=== PATIENT | male | born 1965 | race Asian ===

== ENCOUNTER 2019-05-27 07:22 | Outpatient (CLI) | payer OTHER ==
[~2019-05-27 07:22] MED LIST: AMLO10TA PO
[2019-05-27 10:10] LABS: APPEARANCE,URINE CLEAR (CLEAR); BILIRUBIN,URINE NEGATIVE (NEGATIVE); BLOOD, URINE NEGATIVE (NEGATIVE); COLOR,URINE YELLOW (YELLOW); LEUKOCYTE ESTERASE ,URINE NEGATIVE (NEGATIVE); NITRITE, URINE NEGATIVE (NEGATIVE); PH,URINE 5.5 (5.0-9.0); UGLUCOSE NEGATIVE (NEGATIVE)
[2019-05-27 11:18] LABS: ALBUMIN 4.5 g/dL (3.4-5.0)
[2019-05-27 13:07] LABS: ANION GAP 14.7 (8-16); CARBON DIOXIDE 27.7 mmol/L (21-32); CREATININE 1.7 mg/dL (0.7-1.3); PHOSPHORUS 3.4 mg/dL (2.5-4.9); POTASSIUM 4.4 mmol/L (3.5-5.1)
== END 2019-05-27 20:57 | disposition home or self-care (01) ==
LOC: MLB 07:22
PROVIDERS: ATTEND Family Medicine
DX: N18.3 Chronic kidney disease, stage 3 (moderate) (principal)
CPT/HCPCS: 36415; 76770; 81003; 82040; 82435; 82565; 82947; 84100; 84132; 84295; 84520

== ENCOUNTER 2020-06-25 09:22 | Outpatient (CLI) | payer OTHER ==
[2020-06-25 10:02] LABS: BASOPHILS # (AUTO) 0.1 K/uL (0.00-0.22); BASOPHILS % (AUTO) 1.3 % (0.0-2.0); EOSINOPHILS # (AUTO) 0.2 K/uL (0-0.4); EOSINOPHILS % (AUTO) 4.1 % (0.0-4.0); HEMOGLOBIN 14.1 g/dL (12.0-18.0); LYMPHOCYTES # (AUTO) 1.5 K/uL (2.0-11.5); LYMPHOCYTES % (AUTO) 33.7 % (20.5-51.1); MEAN CORPUSCULAR HEMOGLOBIN 28 pg (27-31); MEAN CORPUSCULAR HGB CONC 33 g/dL (33-37); MEAN CORPUSCULAR VOLUME 85.7 fL (80-94); MONOCYTES # (AUTO) 0.2 K/uL (0.8-1.0); MONOCYTES % (AUTO) 5.4 % (1.7-9.3); NEUTROPHILS # (AUTO) 2.5 K/uL (1.8-7.7); NEUTROPHILS % (AUTO) 55.5 % (42.2-75.2); PLATELET COUNT (AUTO) 283 K/uL (140-450); RED BLOOD CELL COUNT(AUTO) 5.02 MIL/uL (4.20-6.10); RED CELL DISTRIBUTION WIDTH 13.1 % (11.6-13.7); WHITE BLOOD COUNT (AUTO) 4.5 K/uL (4.8-10.8)
[2020-06-25 10:23] LABS: ALBUMIN 4.2 g/dL (3.4-5.0); ANION GAP 11.7 (8-16); CARBON DIOXIDE 29.7 mmol/L (21-32); CHOL/HDL RATIO 4.4 (1-4.5); CREATININE 1.6 mg/dL (0.6-1.3); POTASSIUM 4.4 mmol/L (3.5-5.1); THYROID STIMULATING HORMONE 0.91 uIU/mL (0.34-3.74); TOTAL BILIRUBIN 0.5 mg/dL (0.0-1.0)
== END 2020-06-25 20:24 | disposition home or self-care (01) ==
LOC: MLB 09:22
PROVIDERS: ATTEND Internal Medicine Geriatric Medicine
DX: I10 Essential (primary) hypertension (principal); Z00.00 Encounter for general adult medical examination without abnormal findings
CPT/HCPCS: 36415; 80053; 82272; 84443; 85025

== ENCOUNTER 2020-09-27 09:45 | Outpatient (CLI) | payer OTHER ==
[2020-09-27 10:23] LABS: BASOPHILS % (AUTO) 1.2 % (0.0-2.0); EOSINOPHILS # (AUTO) 0.2 K/uL (0-0.4); HEMATOCRIT 40.7 % (36-52); HEMOGLOBIN 13.3 g/dL (12.0-18.0); LYMPHOCYTES # (AUTO) 1.6 K/uL (2.0-11.5); LYMPHOCYTES % (AUTO) 43.2 % (20.5-51.1); MEAN CORPUSCULAR HEMOGLOBIN 28 pg (27-31); MEAN CORPUSCULAR HGB CONC 33 g/dL (33-37); MEAN CORPUSCULAR VOLUME 84.2 fL (80-94); MONOCYTES # (AUTO) 0.4 K/uL (0.8-1.0); NEUTROPHILS # (AUTO) 1.5 K/uL (1.8-7.7); NEUTROPHILS % (AUTO) 40.6 % (42.2-75.2); PLATELET COUNT (AUTO) 505 K/uL (140-450); RED BLOOD CELL COUNT(AUTO) 4.83 MIL/uL (4.20-6.10); RED CELL DISTRIBUTION WIDTH 13.3 % (11.6-13.7); WHITE BLOOD COUNT (AUTO) 3.8 K/uL (4.8-10.8)
[2020-09-27 13:30] LABS: ALBUMIN 3.9 g/dL (3.4-5.0); CARBON DIOXIDE 28.4 mmol/L (21-32); CREATININE 1.6 mg/dL (0.6-1.3); POTASSIUM 4.4 mmol/L (3.5-5.1); TOTAL BILIRUBIN 0.5 mg/dL (0.0-1.0)
== END 2020-09-27 20:29 | disposition home or self-care (01) ==
LOC: MLB 09:45
PROVIDERS: ATTEND Internal Medicine Geriatric Medicine
DX: I10 Essential (primary) hypertension (principal); D72.819 Decreased white blood cell count, unspecified
CPT/HCPCS: 36415; 80053; 82306; 85025

== ENCOUNTER 2021-01-06 10:22 | Outpatient (CLI) | payer OTHER ==
[2021-01-06 11:59] LABS: BASOPHILS # (AUTO) 0.1 K/uL (0.00-0.22); BASOPHILS % (AUTO) 1.3 % (0.0-2.0); EOSINOPHILS # (AUTO) 0.2 K/uL (0-0.4); EOSINOPHILS % (AUTO) 3.7 % (0.0-4.0); HEMATOCRIT 44.5 % (36-52); HEMOGLOBIN 14.8 g/dL (12.0-18.0); LYMPHOCYTES # (AUTO) 1.8 K/uL (2.0-11.5); LYMPHOCYTES % (AUTO) 34.4 % (20.5-51.1); MEAN CORPUSCULAR HEMOGLOBIN 28 pg (27-31); MEAN CORPUSCULAR HGB CONC 33 g/dL (33-37); MONOCYTES # (AUTO) 0.3 K/uL (0.8-1.0); MONOCYTES % (AUTO) 6.6 % (1.7-9.3); NEUTROPHILS # (AUTO) 2.8 K/uL (1.8-7.7); PLATELET COUNT (AUTO) 320 K/uL (140-450); RED BLOOD CELL COUNT(AUTO) 5.24 MIL/uL (4.20-6.10); RED CELL DISTRIBUTION WIDTH 13.4 % (11.6-13.7); WHITE BLOOD COUNT (AUTO) 5.1 K/uL (4.8-10.8)
[2021-01-06 12:18] LABS: ALBUMIN 4.2 g/dL (3.4-5.0); ANION GAP 11.8 (8-16); CARBON DIOXIDE 29.3 mmol/L (21-32); CREATININE 1.7 mg/dL (0.6-1.3); POTASSIUM 4.1 mmol/L (3.5-5.1); TOTAL BILIRUBIN 0.5 mg/dL (0.0-1.0)
== END 2021-01-06 21:33 | disposition home or self-care (01) ==
LOC: MLB 10:22
PROVIDERS: ATTEND Internal Medicine Geriatric Medicine
DX: I10 Essential (primary) hypertension (principal)
CPT/HCPCS: 36415; 80053; 85025

== ENCOUNTER 2021-03-10 14:38 | Outpatient (CLI) | payer OTHER ==
[2021-03-10 15:06] LABS: BASOPHILS % (AUTO) 0.5 % (0.0-2.0); EOSINOPHILS # (AUTO) 0.1 K/uL (0-0.4); EOSINOPHILS % (AUTO) 1.5 % (0.0-4.0); HEMATOCRIT 44.3 % (36-52); HEMOGLOBIN 14.5 g/dL (12.0-18.0); LYMPHOCYTES # (AUTO) 2.4 K/uL (2.0-11.5); LYMPHOCYTES % (AUTO) 33.7 % (20.5-51.1); MEAN CORPUSCULAR HEMOGLOBIN 28 pg (27-31); MEAN CORPUSCULAR HGB CONC 33 g/dL (33-37); MEAN CORPUSCULAR VOLUME 85.4 fL (80-94); MONOCYTES # (AUTO) 0.4 K/uL (0.8-1.0); MONOCYTES % (AUTO) 5.7 % (1.7-9.3); NEUTROPHILS # (AUTO) 4.2 K/uL (1.8-7.7); NEUTROPHILS % (AUTO) 58.6 % (42.2-75.2); PLATELET COUNT (AUTO) 307 K/uL (140-450); RED BLOOD CELL COUNT(AUTO) 5.19 MIL/uL (4.20-6.10); RED CELL DISTRIBUTION WIDTH 13.3 % (11.6-13.7); WHITE BLOOD COUNT (AUTO) 7.1 K/uL (4.8-10.8)
[2021-03-10 15:34] LABS: ALBUMIN 4.4 g/dL (3.4-5.0); ANION GAP 12.9 (8-16); CHOL/HDL RATIO 4.8 (1-4.5); CREATININE 1.6 mg/dL (0.6-1.3); POTASSIUM 3.9 mmol/L (3.5-5.1); TOTAL BILIRUBIN 0.6 mg/dL (0.0-1.0)
== END 2021-03-10 20:37 | disposition home or self-care (01) ==
LOC: MLB 14:38
PROVIDERS: ATTEND Internal Medicine Geriatric Medicine
DX: I10 Essential (primary) hypertension (principal)
CPT/HCPCS: 36415; 80053; 82272; 85025

== ENCOUNTER 2021-04-23 13:53 | Outpatient (CLI) | payer OTHER | END 2021-04-23 21:32 | disposition home or self-care (01) | LOC: MRD 13:53 | PROVIDERS: ATTEND Internal Medicine Geriatric Medicine | DX: M76.61 Achilles tendinitis, right leg (principal) | CPT/HCPCS: 73610; 73630 ==

== ENCOUNTER 2021-07-07 07:51 | Outpatient (CLI) | payer OTHER ==
[2021-07-07 12:54] LABS: BASOPHILS # (AUTO) 0.1 K/uL (0.00-0.22); BASOPHILS % (AUTO) 0.9 % (0.0-2.0); EOSINOPHILS # (AUTO) 0.2 K/uL (0-0.4); EOSINOPHILS % (AUTO) 2.5 % (0.0-4.0); HEMATOCRIT 43.6 % (36-52); HEMOGLOBIN 14.6 g/dL (12.0-18.0); LYMPHOCYTES # (AUTO) 2.3 K/uL (2.0-11.5); MEAN CORPUSCULAR HEMOGLOBIN 29 pg (27-31); MEAN CORPUSCULAR HGB CONC 33 g/dL (33-37); MONOCYTES # (AUTO) 0.4 K/uL (0.8-1.0); MONOCYTES % (AUTO) 5.6 % (1.7-9.3); NEUTROPHILS # (AUTO) 3.6 K/uL (1.8-7.7); PLATELET COUNT (AUTO) 306 K/uL (140-450); RED BLOOD CELL COUNT(AUTO) 5.07 MIL/uL (4.20-6.10); WHITE BLOOD COUNT (AUTO) 6.5 K/uL (4.8-10.8)
[2021-07-07 13:41] LABS: ALBUMIN 4.2 g/dL (3.4-5.0); ANION GAP 13.3 (8-16); CARBON DIOXIDE 28.1 mmol/L (21-32); CHOL/HDL RATIO 4.9 (1-4.5); CREATININE 1.5 mg/dL (0.6-1.3); POTASSIUM 4.4 mmol/L (3.5-5.1); TOTAL BILIRUBIN 0.5 mg/dL (0.0-1.0); URIC ACID 7.9 mg/dL (2.6-7.2)
== END 2021-07-07 20:31 | disposition home or self-care (01) ==
LOC: MLB 07:51
PROVIDERS: ATTEND Internal Medicine Geriatric Medicine
DX: I10 Essential (primary) hypertension (principal); D72.819 Decreased white blood cell count, unspecified; E78.5 Hyperlipidemia, unspecified
CPT/HCPCS: 36415; 80053; 84550; 85025

== ENCOUNTER 2021-11-05 14:50 | Outpatient (CLI) | payer OTHER ==
[2021-11-05 15:43] LABS: BASOPHILS % (AUTO) 0.7 % (0.0-2.0); EOSINOPHILS # (AUTO) 0.2 K/uL (0-0.4); EOSINOPHILS % (AUTO) 2.8 % (0.0-4.0); HEMATOCRIT 44.6 % (36-52); LYMPHOCYTES # (AUTO) 1.9 K/uL (2.0-11.5); MEAN CORPUSCULAR HEMOGLOBIN 28 pg (27-31); MEAN CORPUSCULAR HGB CONC 34 g/dL (33-37); MEAN CORPUSCULAR VOLUME 83.4 fL (80-94); MONOCYTES # (AUTO) 0.4 K/uL (0.8-1.0); MONOCYTES % (AUTO) 5.9 % (1.7-9.3); NEUTROPHILS # (AUTO) 3.7 K/uL (1.8-7.7); NEUTROPHILS % (AUTO) 60.6 % (42.2-75.2); PLATELET COUNT (AUTO) 354 K/uL (140-450); RED BLOOD CELL COUNT(AUTO) 5.34 MIL/uL (4.20-6.10); RED CELL DISTRIBUTION WIDTH 13.2 % (11.6-13.7); WHITE BLOOD COUNT (AUTO) 6.2 K/uL (4.8-10.8)
[2021-11-05 15:45] LABS: ALBUMIN 4.3 g/dL (3.4-5.0); ANION GAP 12.6 (8-16); CARBON DIOXIDE 28.9 mmol/L (21-32); CHOL/HDL RATIO 4.8 (1-4.5); CREATININE 1.5 mg/dL (0.6-1.3); POTASSIUM 4.5 mmol/L (3.5-5.1); TOTAL BILIRUBIN 0.6 mg/dL (0.0-1.0)
== END 2021-11-05 20:39 | disposition home or self-care (01) ==
LOC: MLB 14:50
PROVIDERS: ATTEND Internal Medicine Geriatric Medicine
DX: I10 Essential (primary) hypertension (principal); E78.5 Hyperlipidemia, unspecified; R35.1 Nocturia
CPT/HCPCS: 36415; 80053; 82272; 82306; 84153; 85025

== ENCOUNTER 2022-02-12 15:18 | Outpatient (CLI) | payer OTHER ==
[2022-02-12 16:36] LABS: ALBUMIN 4.5 g/dL (3.4-5.0); ANION GAP 12.2 (8-16); CHOL/HDL RATIO 4.9 (1-4.5); CREATININE 1.3 mg/dL (0.6-1.3); POTASSIUM 4.2 mmol/L (3.5-5.1); TOTAL BILIRUBIN 0.6 mg/dL (0.0-1.0)
== END 2022-02-12 19:48 | disposition home or self-care (01) ==
LOC: MLB 15:18
PROVIDERS: ATTEND Internal Medicine Geriatric Medicine
DX: E78.5 Hyperlipidemia, unspecified (principal); R35.1 Nocturia; N18.31 Chronic kidney disease, stage 3a
CPT/HCPCS: 36415; 80053; 84154

== ENCOUNTER 2022-06-09 14:13 | Outpatient (CLI) | payer OTHER ==
[2022-06-09 14:31] LABS: BASOPHILS # (AUTO) 0.1 K/uL (0.00-0.22); BASOPHILS % (AUTO) 0.7 % (0.0-2.0); EOSINOPHILS # (AUTO) 0.4 K/uL (0-0.4); EOSINOPHILS % (AUTO) 5.2 % (0.0-4.0); HEMATOCRIT 44.6 % (36-52); HEMOGLOBIN 14.6 g/dL (12.0-18.0); LYMPHOCYTES # (AUTO) 2.2 K/uL (2.0-11.5); LYMPHOCYTES % (AUTO) 26.9 % (20.5-51.1); MEAN CORPUSCULAR HEMOGLOBIN 28 pg (27-31); MEAN CORPUSCULAR HGB CONC 33 g/dL (33-37); MONOCYTES # (AUTO) 0.5 K/uL (0.8-1.0); MONOCYTES % (AUTO) 6.2 % (1.7-9.3); NEUTROPHILS # (AUTO) 5.1 K/uL (1.8-7.7); PLATELET COUNT (AUTO) 328 K/uL (140-450); RED BLOOD CELL COUNT(AUTO) 5.31 MIL/uL (4.20-6.10); RED CELL DISTRIBUTION WIDTH 13.3 % (11.6-13.7); WHITE BLOOD COUNT (AUTO) 8.3 K/uL (4.8-10.8)
[2022-06-09 15:02] LABS: ALBUMIN 4.3 g/dL (3.4-5.0); ANION GAP 15.5 (8-16); CARBON DIOXIDE 25.9 mmol/L (21-32); CHOL/HDL RATIO 4.2 (1-4.5); CREATININE 1.5 mg/dL (0.6-1.3); POTASSIUM 4.4 mmol/L (3.5-5.1); TOTAL BILIRUBIN 0.6 mg/dL (0.0-1.0)
== END 2022-06-09 22:00 | disposition home or self-care (01) ==
LOC: MLB 14:13
PROVIDERS: ATTEND Internal Medicine Geriatric Medicine
DX: E78.5 Hyperlipidemia, unspecified (principal); D72.89 Other specified disorders of white blood cells
CPT/HCPCS: 36415; 80053; 85025

== ENCOUNTER 2022-10-13 21:35 | Outpatient (CLI) | payer OTHER ==
[2022-10-13 22:31] LABS: ALBUMIN 4.3 g/dL (3.4-5.0); ANION GAP 9.4 (8-16); CARBON DIOXIDE 31.7 mmol/L (21-32); CHOL/HDL RATIO 4.6 (1-4.5); CREATININE 1.4 mg/dL (0.6-1.3); POTASSIUM 4.1 mmol/L (3.5-5.1); TOTAL BILIRUBIN 0.2 mg/dL (0.0-1.0)
== END 2022-10-13 22:00 | disposition home or self-care (01) ==
LOC: MLB 21:35
PROVIDERS: ATTEND Internal Medicine Geriatric Medicine
DX: E78.5 Hyperlipidemia, unspecified (principal)
CPT/HCPCS: 36415; 80053

== ENCOUNTER 2022-11-11 09:07 | Outpatient (CLI) | payer OTHER | END 2022-11-11 21:19 | disposition home or self-care (01) | LOC: MLB 09:07 → MRD 21:19 | PROVIDERS: ATTEND Internal Medicine Geriatric Medicine | DX: Z11.1 Encounter for screening for respiratory tuberculosis (principal); Q25.46 Tortuous aortic arch; J98.4 Other disorders of lung | CPT/HCPCS: 71046 ==

== ENCOUNTER 2022-12-20 09:20 | Outpatient (CLI) | payer OTHER | END 2022-12-20 21:47 | disposition home or self-care (01) | LOC: MRD 09:20 | PROVIDERS: ATTEND Internal Medicine Geriatric Medicine | DX: K76.89 Other specified diseases of liver (principal); Z87.01 Personal history of pneumonia (recurrent) | CPT/HCPCS: 71046 ==

== ENCOUNTER 2023-01-20 07:33 | Outpatient (CLI) | payer OTHER ==
[2023-01-20 09:21] LABS: BASOPHILS # (AUTO) 0.1 K/uL (0.00-0.22); BASOPHILS % (AUTO) 1.2 % (0.0-2.0); EOSINOPHILS # (AUTO) 0.1 K/uL (0-0.4); EOSINOPHILS % (AUTO) 2.7 % (0.0-4.0); HEMATOCRIT 43.9 % (36-52); HEMOGLOBIN 14.7 g/dL (12.0-18.0); LYMPHOCYTES # (AUTO) 2.1 K/uL (2.0-11.5); LYMPHOCYTES % (AUTO) 38.9 % (20.5-51.1); MEAN CORPUSCULAR HEMOGLOBIN 28 pg (27-31); MEAN CORPUSCULAR HGB CONC 34 g/dL (33-37); MEAN CORPUSCULAR VOLUME 84.1 fL (80-94); MONOCYTES # (AUTO) 0.3 K/uL (0.8-1.0); MONOCYTES % (AUTO) 4.9 % (1.7-9.3); NEUTROPHILS # (AUTO) 2.9 K/uL (1.8-7.7); NEUTROPHILS % (AUTO) 52.3 % (42.2-75.2); PLATELET COUNT (AUTO) 322 K/uL (140-450); RED BLOOD CELL COUNT(AUTO) 5.21 MIL/uL (4.20-6.10); RED CELL DISTRIBUTION WIDTH 12.9 % (11.6-13.7); WHITE BLOOD COUNT (AUTO) 5.5 K/uL (4.8-10.8)
[2023-01-20 09:26] LABS: ALBUMIN 4.3 g/dL (3.4-5.0); CARBON DIOXIDE 30.2 mmol/L (21-32); CHOL/HDL RATIO 4.4 (1-4.5); CREATININE 1.4 mg/dL (0.6-1.3); TOTAL BILIRUBIN 0.4 mg/dL (0.0-1.0)
[2023-01-20 09:33] LABS: ANION GAP 10.8 (8-16)
== END 2023-01-20 20:43 | disposition home or self-care (01) ==
LOC: MLB 07:33
PROVIDERS: ATTEND Internal Medicine Geriatric Medicine
DX: R73.9 Hyperglycemia, unspecified (principal); E78.5 Hyperlipidemia, unspecified
CPT/HCPCS: 36415; 80053; 83036; 85025

== ENCOUNTER 2023-04-25 07:28 | Outpatient (CLI) | payer OTHER | END 2023-04-25 17:39 | disposition home or self-care (01) | LOC: MRD 07:28 | PROVIDERS: ATTEND Internal Medicine Geriatric Medicine | DX: J18.1 Lobar pneumonia, unspecified organism (principal); J98.4 Other disorders of lung | CPT/HCPCS: 71046 ==

== ENCOUNTER 2023-07-31 08:55 | Outpatient (CLI) | payer OTHER ==
[2023-07-31 09:56] LABS: ALBUMIN 4.1 g/dL (3.4-5.0); ANION GAP 9.2 (8-16); CARBON DIOXIDE 30.5 mmol/L (21-32); CHOL/HDL RATIO 4.9 (1-4.5); CREATININE 1.4 mg/dL (0.6-1.3); POTASSIUM 3.7 mmol/L (3.5-5.1); TOTAL BILIRUBIN 0.8 mg/dL (0.0-1.0); TOTAL PROTEIN, SERUM 7.8 g/dL (6.4-8.2)
== END 2023-07-31 21:55 | disposition home or self-care (01) ==
LOC: MLB 08:55
PROVIDERS: ATTEND Internal Medicine Geriatric Medicine
DX: Z12.11 Encounter for screening for malignant neoplasm of colon (principal); R73.03 Prediabetes; E78.5 Hyperlipidemia, unspecified
CPT/HCPCS: 36415; 80053; 82272; 83036